=== PATIENT | female | born 1965 | race Caucasian/White ===

== ENCOUNTER 2020-03-30 05:23 | Day surgery (SDC) | payer MEDICAID ==
[2020-03-20 10:35] LABS: BASOPHILS % (AUTO) 0.6 % (0-1); EOSINOPHILS # (AUTO) 0.2 X10'3 (0-0.9); LYMPHOCYTES # (AUTO) 1.3 X10'3 (1.1-4.8); LYMPHOCYTES % (AUTO) 21.8 % (21-51); MEAN CORPUSCULAR HEMOGLOBIN 30.4 PG (27.0-31.0); MEAN CORPUSCULAR HGB CONC 33.8 g/dL (33.0-36.5); MEAN PLATELET VOLUME 8.8 FL (7.4-10.4); MONOCYTES # (AUTO) 0.4 X10'3 (0-0.9); NEUTROPHILS # (AUTO) 3.9 X10'3 (1.8-7.7); NEUTROPHILS % (AUTO) 67.6 % (42-75); PRE OP HEMATOCRIT 40.2 % (35.0-45.0); PRE OP HEMOGLOBIN 13.6 g/dL (12.0-16.0); PRE OP PLATELET COUNT 295 X10'3 (140-440); RED BLOOD COUNT 4.46 X10'6 (4.20-5.60); RED CELL DISTRIBUTION WIDTH 13.9 % (11.5-14.5)
[2020-03-20 10:47] LABS: ALANINE AMINOTRANSFERASE 28 U/L (12-78); ALBUMIN 4.1 G/DL (3.4-5.0); ALKALINE PHOSPHATASE 71 IU/L (46-116); ANION GAP 7 (8-16); ASPARTATE AMINO TRANSFERASE 24 U/L (10-37); BILIRUBIN,TOTAL 0.3 MG/DL (0.1-1.0); BLOOD UREA NITROGEN 17 MG/DL (7-18); CALCIUM 8.8 MG/DL (8.5-10.1); CHLORIDE 104 MMOL/L (99-107); CREATININE 0.85 MG/DL (0.40-0.90); GLUCOSE 96 MG/DL (70-104); POTASSIUM 4.1 MMOL/L (3.5-5.1); SODIUM 139 MMOL/L (135-145); TOTAL CARBON DIOXIDE 28.5 MMOL/L (24-32); TOTAL PROTEIN 8.1 G/DL (6.4-8.2); eGFR 70 ML/MIN
[2020-03-30] VITALS (8 sets, daily range): BP systolic 119–173; BP diastolic 70–84
[~2020-03-30] VITALS: Ht 167.6 cm; Wt 121.1 kg
[~2020-03-30 05:23] MED LIST: BENA10TA74 PO; DILT120C10 PO; HYDR200T84 PO; ringers solution, lacted 1,000 ML IV SCH
[2020-03-30] MEDS ORDERED: famotidine 20mg tablet PO ONE (05:30)
[2020-03-30] MEDS ORDERED: ceFAZolin inj. 3,000 MG in normal saline 100ml IV soln 100 ML IV ONE (05:30)
[2020-03-30] MEDS ORDERED: vancomycin 1,500 MG in NS 300ml IV soln IV ONE (05:30)
[2020-03-30] MEDS ORDERED: LIDOcaine 1% (10mg/ml) 2ml vial ONE (06:02)
[2020-03-30] MEDS ORDERED: triamcinolone acetonide 40mg/ml inj ONE (06:40)
[2020-03-30] MEDS ORDERED: BUPIVAcaine/PF 2.5 mg/ml (0.25%) 30ml vial ONE (06:40)
[2020-03-30] MEDS ORDERED: sevoflurane 250ml liquid IH ONE (07:30)
[2020-03-30] MEDS ORDERED: fentaNYL/PF 50MCG/1 ML 2ML syringe ONE (07:35)
[2020-03-30] MEDS ORDERED: midazolam 2 mg/2 ml injection ONE (07:35)
[2020-03-30] MEDS ORDERED: LIDOcaine 2% (20mg/ml) 5ml vial ONE (08:01)
[2020-03-30] MEDS ORDERED: ondansetron/PF 4mg/2ml inj ONE (08:01)
[2020-03-30] MEDS ORDERED: dexamethasone sod phosphate 4mg/ml inj. ONE (08:01)
[2020-03-30] MEDS ORDERED: propofol inj 20 ML IV ONE (08:01)
[2020-03-30] MEDS ORDERED: ringers solution, lacted 1,000 ML IV SCH (08:16)
[2020-03-30] MEDS ORDERED: hydrALAZINE 20mg/ml inj. IV PRN (08:20)
[2020-03-30] MEDS ORDERED: ondansetron/PF 4mg/2ml inj IV PRN (08:20)
[2020-03-30] MEDS ORDERED: acetaminophen 1,000mg/100ml IV 100 ML IV PRN (08:20)
[2020-03-30] MEDS ORDERED: proCHLORperazine 10 MG/2 ml inj IV PRN (08:20)
[2020-03-30] MEDS ORDERED: labetalol 20mg/4ml (5mg/ml) syringe IV PRN (08:20)
[2020-03-30] MEDS ORDERED: meperidine/PF 25mg/ml syringe IV PRN ×3 (08:20)
[2020-03-30] MEDS ORDERED: morphine 2 MG/ML inj. syringe IV PRN (08:20)
[2020-03-30] MEDS ORDERED: morphine 4 MG/ML inj SYRINge IV PRN (08:20)
--- NOTE | 2020-03-30 09:12 | NUR ---
Received from OR via [facility] , accompanied by Anesthesiologist ZARINA and report given by Anesthesiolgist. PATIENT WITH 20G PIV IN LEFT UE RUNNING LR AT 100. DENIES PAIN TO KNEES. BILAT KNEES WITH BIAS DRESSING PRSENT WITH NO DRAINAGE PRESENT. VSS AT THIS TIME. +CAP REFILL TO BOTH FEET. PWD TOES. Addendum: 03/30/20 at 0922 by Felix Clinton RN, RN Amended: Links added.
--- NOTE | 2020-03-30 10:14 | NUR ---
PATIENT HAS MET ALL DC CRITERIA FOR DC HOME. I HAVE REVIEWED D/C INSTRUCTIONS WITH PATIENT AND FAMILY AND THEY HAVE VERBALIZED UNDERSTANDING, OPPORTUNITY TO ASK QUESTIONS GIVEN AND PATIENT COMFORTABLE WITH DC. IV TAKEN OUT WITHOUT COMPLICATION. OUT VIA WHEELCHAIR WHERE PATIENT WAS TAKEN HOME WITH ALL BELONGINGS. FAMILY GAVE PATIENT TRANSPORT HOME. PATIENT ABLE TO TAKE SMALL STEPS TO AND FROM WHEELCHAIR. PAIN WELL CONTROLLED. NOT REQUESTING PAIN MEDS AT THIS TIME. Addendum: 03/30/20 at 1028 by Felix Clinton RN, RN Amended: Links added.
== END 2020-03-30 10:14 | disposition home or self-care (01) ==
LOC: PAS 05:23
PROVIDERS: ATTEND Orthopaedic Surgery
DX: S83.242A Other tear of medial meniscus, current injury, left knee, initial encounter (principal); S83.282A Other tear of lateral meniscus, current injury, left knee, initial encounter; S83.231A Complex tear of medial meniscus, current injury, right knee, initial encounter; S83.281A Other tear of lateral meniscus, current injury, right knee, initial encounter; M17.0 Bilateral primary osteoarthritis of knee; M94.262 Chondromalacia, left knee; M94.261 Chondromalacia, right knee; I10 Essential (primary) hypertension; E66.01 Morbid (severe) obesity due to excess calories; Z68.41 Body mass index [BMI] 40.0-44.9, adult; Z20.828 Contact with and (suspected) exposure to other viral communicable diseases; Z79.899 Other long term (current) drug therapy; Z83.3 Family history of diabetes mellitus; Z80.9 Family history of malignant neoplasm, unspecified; Z82.49 Family history of ischemic heart disease and other diseases of the circulatory system; X58.XXXA Exposure to other specified factors, initial encounter; Y93.89 Activity, other specified; Y92.89 Other specified places as the place of occurrence of the external cause; Y99.8 Other external cause status
CPT/HCPCS: 29873; 29879; 29880; 36415; 80053; 82948; 85025; 87635; 93005; J0690; J1100; J2001; J2250; J2405; J2704; J3010; J3301; J3370; J3490; A4215; A4618; A6250; A6449; A7000; J7120